=== PATIENT | male | born 2000 | race Caucasian/White ===

== ENCOUNTER 2022-07-10 21:29 | Emergency (ER) | payer OTHER ==
[~2022-07-10] VITALS: Ht 185.4 cm; Wt 132.0 kg
[2022-07-10 22:00] VITALS: BP 134/70
--- NOTE | 2022-07-10 22:03 | NUR ---
TO LOBBY A/W BED AMBULATORY
[2022-07-11] MEDS ORDERED: cefTRIAXone 1,000 MG in LIDOCAINE MPF 1% 2.1 ML IM ONE (00:10)
[2022-07-11] MEDS ORDERED: IBUP-2213 PO (00:13)
[2022-07-11] MEDS ORDERED: CEPH500C16 PO (00:13)
[2022-07-11] MEDS ORDERED: LIDOCAINE MPF 1% 5 ML ONE (00:27)
[2022-07-11] MEDS ORDERED: cefTRIAXone 1,000 MG VIAL ONE (00:27)
== END 2022-07-11 00:22 | disposition home or self-care (01) ==
LOC: MED 21:29
DX: S61.432A Puncture wound without foreign body of left hand, initial encounter (principal); X58.XXXA Exposure to other specified factors, initial encounter; Y93.89 Activity, other specified; Y92.89 Other specified places as the place of occurrence of the external cause; Y99.8 Other external cause status
CPT/HCPCS: 73130; 90471; 90715; 96372; 99284; J0696; J2001; Q0092

== ENCOUNTER 2022-12-11 08:32 | Emergency (ER) | payer OTHER ==
[~2022-12-11] VITALS: Ht 185.4 cm; Wt 129.3 kg
[~2022-12-11 08:32] MED LIST: CEPH500C16 PO; IBUP-2213 PO
[2022-12-11 08:48] VITALS: BP 141/96; PULSE 68; RESP 18; TEMP 97; O2SAT 98
[2022-12-11] MEDS ORDERED: KETOROLAC 60 MG/2 ML VIAL IM ONE (09:35)
[2022-12-11] MEDS ORDERED: ACET-8905 PO (10:59)
[2022-12-11] MEDS ORDERED: IBUP-2213 PO (10:59)
[2022-12-11 11:05] VITALS: BP 118/65; PULSE 74; RESP 17; O2SAT 98
== END 2022-12-11 11:05 | disposition home or self-care (01) ==
LOC: MED 08:32
DX: M25.512 Pain in left shoulder (principal); J45.909 Unspecified asthma, uncomplicated; F12.90 Cannabis use, unspecified, uncomplicated; Z90.49 Acquired absence of other specified parts of digestive tract; Z79.1 Long term (current) use of non-steroidal anti-inflammatories (NSAID); Z79.2 Long term (current) use of antibiotics
CPT/HCPCS: 73030; 96372; 99283; J1885